=== PATIENT | female | born 1980 | race Caucasian/White ===

== ENCOUNTER → 2024-04-28 06:29 | Outpatient (REF) | payer OTHER, SELFPAY ==
[2024-04-28 07:15] LABS: % Basophils 2.1 % (0-2); % Eosinophils 1.9 % (0-6); % Immature Granulocytes 0.2 % (0-0.5); % Lymphocytes 46.8 % (20.5-51.1); % Monocytes 9.1 % (1.7-9.3); % Neutrophils 39.9 % (42.2-75.2); Absolute Basophils 0.1 10^3/uL (0-0.2); Absolute Eosinophils 0.1 10^3/uL (0-0.7); Absolute Monocytes 0.4 10^3/uL (0.1-0.6); Absolute Neutrophils 1.7 10^3/uL (1.4-6.5); Hematocrit 43.1 % (37.0-47.0); Mean Corp Hgb Conc. 32.5 g/dL (33.0-37.0); Mean Corpuscular Hgb 29.7 pg (27.0-31.0); Mean Corpuscular Volume 91.3 fL (81.0-99.0); Nucleated Red Blood Cells % 0 %; Platelet Count 271 10^3/uL (130-400); Red Blood Cell Count 4.72 10^6/uL (4.20-5.40); Red Cell Dist. Width 13.1 % (11.5-14.5); White Blood Cell Count 4.2 10^3/uL (4.8-10.8)
[2024-04-28 07:42] LABS: ALT (SGPT) 18 U/L (0-35); AST (SGOT) 26 U/L (14-36); Albumin 4.9 g/dl (3.5-5.0); Alkaline Phosphatase 37 U/L (38-126); Blood Urea Nitrogen 14 mg/dl (7-17); Calcium 9.2 mg/dl (8.4-10.2); Carbon Dioxide 31 mmol/L (22-30); Chloride 101 mmol/L (98-107); Glucose 84 mg/dl (70-99); HDL Cholesterol 86 mg/dl; LDL Cholesterol, Calculated 141 mg/dl; Potassium 4.5 mmol/L (3.5-5.1); Sodium 139 mmol/L (135-145); Total Bilirubin 0.5 mg/dl (0.2-1.3); Total Cholesterol 243 mg/dl (50-199); Total Protein 7.4 g/dl (6.3-8.2); Triglyceride 80 mg/dl (10-149); Very Low Density Lipoprotein 16 mg/dl (0-30); eGFR > 60.00
[2024-04-28 07:55] LABS: Free T4 1.19 ng/dl (0.78-2.19)
== END ==
LOC: REG 06:29
PROVIDERS: ATTENDING PHYSICIAN Physician Assistant Medical
DX: Z00.00 Encounter for general adult medical examination without abnormal findings (principal); E78.2 Mixed hyperlipidemia; E06.3 Autoimmune thyroiditis
CPT/HCPCS: 36415; 80053; 80061; 84439; 84443; 85025

== ENCOUNTER 2024-05-25 12:22 | Emergency (ER) | payer BC, SELFPAY ==
[2024-05-25 12:25] VITALS: BP 142/99
--- NOTE | 2024-05-25 13:41 | ED.MUSCINJ ---
HPI-Injury
General
Chief Complaint: Fall
Source: patient
Exam Limitations: none
Time Seen by Provider: 05/25/24 13:26
History of Present Illness-Injury
Initial Injury comments:
44-year-old female presents for evaluation of neck pain and headache 5 days following a fall. She slipped on black ice and landed on her backside. She had immediate neck pain and headache. She tried to rest over the past several days without any
significant relief and try to work here today and developed more symptoms of neck pain and headache. She occasionally has numbness down her left arm. No associated chest pain. She is not anticoagulated. She has been using ibuprofen with minimal
relief. No other complaints at this time
Phy Exam
Physical Exam
Physical Exam:
General: Well-appearing female no acute respiratory distress
HEENT: Normocephalic pupils equal round reactive to light extraocular's are intact
Musculoskeletal exam: Limited range of motion of cervical spine and mild diffuse tenderness about the paraspinous area good range of motion left shoulder and right shoulder. Good strength to the left arm
Neurologic exam: Alert and oriented conversing appropriately normal gait good strength to the extremities
Injury Course
Orders/Labs/Results
Orders:
Orders
05/25/24 13:40
CT Cervical Spine W/o Iv Contr Urgent
Comment:
Reason For Exam: fall, neck pain
CT Head W/o Iv Contrast Urgent
Comment:
Reason For Exam: fall
MDM/Problems Addressed
Differential Diagnosis Includes:
Patient with increased neck pain and headache following a fall. She fell backwards slipping on the ice. Question concussion versus intracranial hemorrhage for cervical spine fracture or cervical strain.
Due to increasing symptoms we will order CT of head and cervical spine.
*Critical Care Note
Total Time (30-74mins, 75-104mins- exclusive of procedures): Not Applicable
Update Note
Update Note:
CT of head and cervical spine negative. Suspect cervical strain and mild concussion. Recommended continued use of nsaids/tylenol. Stable for discharge.
ED Attending Note
-
Portions of this chart may have been created with voice recognition software.� Occasional wrong word or��sound alike� substitutions may have occurred due to the inherent limitations of voice recognition software.
Discharge Plan
Departure
Patient Disposition: Home (Routine Discharge)
Date of Disposition: 05/25/24
Time of Disposition: 15:24
Patient with high blood pressure during this ER visit?: No
Discharge Problem:
Cervical strain, acute, Concussion
Instructions: Concussion, Adult (DC)
Referrals:
Samantha Dan PA [Family Provider] -
Stand Alone Forms: Return to Work
Activity Restrictions/Additional Instructions:
Rest. Continue with warm compresses. Use ibuprofen or Tylenol for pain. Return here if worse otherwise follow-up with your doctor
Interventions
Interventions:
*Risk Screen - Suicide Last Done: 05/25/24 12:25
*General Assessment Last Done: 05/25/24 12:25
*Neglect/Abuse Screening Last Done: 05/25/24 12:25
*ED COVID-19 Vaccine History Last Done: 05/25/24 12:47
ED-Musculoskeletal Assessment Last Done: 05/25/24 12:47
ED- Neurological Assessment Last Done: 05/25/24 12:47
ED-Skin Assessment Last Done: 05/25/24 12:47
Discharge Date and Time
Print Language: JAPANESE
[2024-05-25 15:33] VITALS: BP 138/84
== END 2024-05-25 15:47 | disposition home or self-care (01) ==
LOC: EMR 12:22
PROVIDERS: EMERGENCY PHYSICIAN Emergency Medicine; FAMILY PHYSICIAN Physician Assistant Medical
DX: S16.1XXA Strain of muscle, fascia and tendon at neck level, initial encounter (principal); S06.0XAA Concussion with loss of consciousness status unknown, initial encounter; W00.0XXA Fall on same level due to ice and snow, initial encounter; R51.9 Headache, unspecified
CPT/HCPCS: 99284; 70450; 72125

== ENCOUNTER → 2024-09-02 12:22 | Outpatient (REF) | payer BC, SELFPAY | LOC: CLAB 12:22 | PROVIDERS: ATTENDING PHYSICIAN Physician Assistant Medical | DX: S20.462A Insect bite (nonvenomous) of left back wall of thorax, initial encounter (principal) | CPT/HCPCS: 36415; 86618 ==